=== PATIENT | female | born 1985 | race Caucasian/White ===

== ENCOUNTER 2020-02-11 01:00 | Emergency (ER) | payer MEDICAID ==
[~2020-02-11] VITALS: Ht 154.9 cm; Wt 50.7 kg
[2020-02-11] MEDS ORDERED: IBUPROFEN 600MG TABLET PO ONE (02:30)
[2020-02-11 03:19] LABS: CLARITY URINE CLEAR (CLEAR); COLOR URINE YELLOW (YELLOW); KETONES URINE NEGATIVE (NEGATIVE); LEUKOCYTE ESTERASE URINE NEGATIVE (NEGATIVE); NITRITE URINE NEGATIVE (NEGATIVE); OCCULT BLOOD URINE NEGATIVE (NEGATIVE); PH URINE 5.5 (4.5-8.0); PROTEIN URINE NEGATIVE (NEGATIVE); SPECIFIC GRAVITY URINE 1.001 (1.005-1.030); UROBILINOGEN URINE 0.2 E.U./dL (0.2-1.0)
[2020-02-11 04:54] VITALS: BP 122/72
== END 2020-02-11 04:54 | disposition home or self-care (01) ==
LOC: ER 01:00
DX: J16.8 Pneumonia due to other specified infectious organisms (principal); Z98.890 Other specified postprocedural states; Z88.1 Allergy status to other antibiotic agents
CPT/HCPCS: 71045; 81003; 81025; 82962; 99284

== ENCOUNTER 2020-02-13 14:56 | Emergency (ER) | payer MEDICAID ==
[~2020-02-13] VITALS: Ht 165.1 cm; Wt 59.0 kg
[2020-02-13 15:18] VITALS: BP 114/86
== END 2020-02-13 16:20 | disposition home or self-care (01) ==
LOC: ER 14:56
DX: J16.8 Pneumonia due to other specified infectious organisms (principal); M54.9 Dorsalgia, unspecified; Z98.890 Other specified postprocedural states; Z88.0 Allergy status to penicillin
CPT/HCPCS: 81025; 99283